=== PATIENT | male | born 1975 | race Caucasian/White ===

== ENCOUNTER 2022-01-11 23:14 | Emergency (ER) | payer OTHER ==
[~2022-01-11] VITALS: Ht 175.3 cm; Wt 163.3 kg
== END 2022-01-12 00:27 | disposition home or self-care (01) ==
LOC: ER 23:14
DX: T78.40XA Allergy, unspecified, initial encounter (principal); R21 Rash and other nonspecific skin eruption; R22.0 Localized swelling, mass and lump, head; E11.9 Type 2 diabetes mellitus without complications; I10 Essential (primary) hypertension; X58.XXXA Exposure to other specified factors, initial encounter
CPT/HCPCS: 99283

== ENCOUNTER 2022-10-22 10:04 | Day surgery (SDC) | payer OTHER ==
[~2022-10-22] VITALS: Ht 172.7 cm; Wt 156.9 kg
--- NOTE | 2022-10-22 07:21 | NUR ---
10/22/22 [address] JAMISON, SEE ANESTHESIA RECORDS.
[~2022-10-22 10:04] MED LIST: ATOR40TA PO; GLIP10 PO; LOSARTAN-HCTZ1 EACH PO; METF500 PO; TOUJEO MAX300 UNIT/2 SQ; TRULICITY1.5 MG/0.1 SQ
[2022-10-22 11:40] VITALS: BP 134/68
--- NOTE | 2022-10-22 11:58 | NUR ---
[facility] in [facility] warming gown applied. Patient states colon prep results clear. History, Chart, Medications and Allergies reviewed before start of procedure.History, Chart, Medications and Allergies reviewed before start of procedure.Lungs clear T/O to Auscultation. Patient confirms NPO status and agrees with scheduled surgery. Pre-Op teaching done. Pt verbalizes understanding. Patient States Post-Procedure ride home has been arranged. Patient states colon prep results clear. PATIENT'S CHEM B/G WAS AT 81, ORDERED 25 MG OF 50% DEXROSE ADDED TO PATIENT'S LR BAD AND THE FLOW OPEN WIDE OPEN.
[2022-10-22 12:56] VITALS: BP 115/70
[2022-10-22 13:11] VITALS: BP 124/82
--- NOTE | 2022-10-22 13:18 | NUR ---
Patient up to Ambulate independently. Gait steady WITH STAND BY ASSIST. Discharge instructions reviewed with patient. Patient verbalizes understanding. Copy given to patient to take home. Discharged via wheelchair to private car for ride home WITH MOTHER IN LAW
== END 2022-10-22 13:20 | disposition home or self-care (01) ==
LOC: ORSCMMR 10:04 → ORD 11:30 → ORSCMMR 11:30
PROVIDERS: Internal Medicine Gastroenterology
PROC: 0DBN8ZX Excision of Sigmoid Colon, Via Natural or Artificial Opening Endoscopic, Diagnostic (ICD-10-PCS; principal; 2022-10-22 11:30)
DX: Z12.11 Encounter for screening for malignant neoplasm of colon (principal); K63.5 Polyp of colon; E11.9 Type 2 diabetes mellitus without complications; I10 Essential (primary) hypertension; G47.30 Sleep apnea, unspecified; E78.00 Pure hypercholesterolemia, unspecified; E66.01 Morbid (severe) obesity due to excess calories; Z68.43 Body mass index [BMI] 50.0-59.9, adult; Z79.4 Long term (current) use of insulin; Z79.84 Long term (current) use of oral hypoglycemic drugs; Z87.891 Personal history of nicotine dependence; Z79.899 Other long term (current) drug therapy
CPT/HCPCS: 82947; 88305; J2704; J3010; J7120